=== PATIENT | male | born 1955 | race Caucasian/White ===

== ENCOUNTER 2018-09-28 18:07 | Inpatient (IN) | payer MEDICARE, MEDICAID ==
[2018-09-28 18:31] LABS: Actual Bicarbonate (HCO3a) 29.7 mEq/L (22-28); Analyzer IN Cardio ER; Base Excess (BEa) 0.7 mEq/L (-2.0 to +3.0); Calcium, Ionized 1.14 mmol/L (1.12-1.30); Carboxyhemoglobin (COHb) 3.8 gm% (0.0-3.0); Hemoglobin (Hb) 13.8 g/dL (14.0-18.0); O2 Tension (PaO2) 62.9 mmHg (> 80.0); Potassium - ABG Lab 4.01 mmol/L (3.70-5.30); pH, Arterial 7.26 (7.35-7.45)
[2018-09-28 18:35] LABS: CO2 Tension 68.4 mmHg (35.0-45.0); Puncture Site R BRACHIAL
--- NOTE | 2018-09-28 18:53 | RAD ---
XR Chest 1 View Portable HISTORY: Dyspnea COMPARISON: 03/29/2018 study FINDINGS: Heart size is enlarged. Pulmonary vessels are engorged. There is blunting to the right cost ophrenic angle consistent with effusion. IMPRESSION: Cardiomegaly with mild CHF type changes.
[2018-09-28 18:56] LABS: Bilirubin Negative (Negative); Blood, Urine Trace (Negative); Clarity Clear (Clear); Glucose, Urine (Dipstick) Normal (Negative); Leukocyte 25 Leu/uL (Negative); Nitrite Negative (Negative); Protein, Urine (Dipstick) 20 mg/dL (Neg-Trace); RBC/HPF 0-3 HPF (0-3); Urobilinogen Normal mg/dL (Less than 2)
[2018-09-28 19:00] LABS: #Basophils 0.1 thou/uL (0.0-0.2); #Eosinphils 0.1 thou/uL (0.0-0.7); #Lymphocytes 2.5 thou/uL (1.20-3.40); #Monocytes 0.3 thou/uL (0.11-0.59); #Neutrophils 2.5 thou/uL (1.40-6.50); %Basophils 1.2 % (0.0-1.0); %Eosinophils 1.5 % (0.0-10.0); %Lymphocytes 45.4 % (21.0-51.0); %Monocytes 6.2 % (0.0-10.0); %Neutrophils 45.7 % (42.0-75.0); Hemoglobin 13.8 g/dL (14.0-18.0); Mean Corpuscular HGB CONC 32.3 g/dL (32.0-36.0); Mean Corpuscular Hemoglobin 31.4 pg (27.0-31.0); Mean Corpuscular Volume 97.1 fL (78.0-98.0); Platelet Count 171 thou/uL (130-400); RBC Distribution Width 13.1 % (11.5-14.5); White Blood Cell (WBC) Count 5.5 thou/uL (4.8-10.8)
[2018-09-28 19:00] LABS: Bacteria/HPF 1+ HPF (None Seen)
[2018-09-28 19:21] LABS: ALT (SGPT) 12 U/L (8-55); AST (SGOT) 25 U/L (5-34); Albumin 3.2 g/dL (3.4-4.8); Alkaline Phosphatase 74 U/L (40-150); Anion Gap 10 mmol/L (10-20); BUN (Urea Nitrogen) 25 mg/dL (8.4-25.7); Bilirubin, Total 0.4 mg/dL (0.2-1.2); CK (CPK) 656 U/L (30-200); Calc. Creatinine Clearance 0 mL/min (70-130); Calcium 8.5 mg/dL (7.8-10.44); Carbon Dioxide 33 mmol/L (23-31); Chloride 102 mmol/L (98-107); Estimated GFR-MDRD 42; Globulin 3.1 g/dL (2.4-3.5); Glucose 131 mg/dL (80-115); Magnesium 2.3 mg/dL (1.6-2.6); Potassium 4.1 mmol/L (3.5-5.1); Protein, Total 6.3 g/dL (5.8-8.1); Sodium 141 mmol/L (136-145)
[2018-09-28] MEDS ORDERED: Furosemide 40 MG/4 ML VIAL ONE (20:26)
[2018-09-29] MEDS ORDERED: Guaifenesin DM 100-10/5 ML UDCUP PO PRN (01:39)
[2018-09-29] MEDS ORDERED: Ondansetron ODT 4 MG TAB PO PRN (01:39)
[2018-09-29] MEDS ORDERED: Ondansetron PF 4 MG/2 ML Vial IVP PRN (01:39)
[2018-09-29] MEDS ORDERED: Acetaminophen 500 MG TAB PO PRN (01:39)
[2018-09-29] MEDS ORDERED: Bacteriostatic Water 30 ML VIAL FS PRN (01:57)
[2018-09-29] MEDS: Cefepime 2 GM in Sodium Chloride 0.9% 100 ML IVPB SCH ×2 (02:06→14:12)
[2018-09-29] MEDS: methylPREDNISolone Sod Succ 40 MG VIAL IVP SCH ×2 (02:07→08:54)
[2018-09-29] MEDS ORDERED: methylPREDNISolone Sod Succ 40 MG VIAL ONE (02:10)
[2018-09-29 03:08] VITALS: BP 99/62; BMI 25.3
[2018-09-29 05:18] LABS: Anion Gap 16 mmol/L (10-20); BUN (Urea Nitrogen) 26 mg/dL (8.4-25.7); Calc. Creatinine Clearance 42 mL/min (70-130); Calcium 8.8 mg/dL (7.8-10.44); Carbon Dioxide 30 mmol/L (23-31); Chloride 100 mmol/L (98-107); Estimated GFR-MDRD 47; Glucose 151 mg/dL (80-115); Potassium 4.2 mmol/L (3.5-5.1); Sodium 142 mmol/L (136-145)
[2018-09-29 05:21] LABS: Band 7 % (5-11); Lymphocytes 26 % (21-51); MDiff Complete? YES; Mean Corpuscular HGB CONC 31.8 g/dL (32.0-36.0); Mean Corpuscular Hemoglobin 30.6 pg (27.0-31.0); Mean Corpuscular Volume 96.2 fL (78.0-98.0); Mean Platelet Volume 7.6 fL (7.4-10.4); Myelocyte 1 % (0-0); Neutrophil 66 % (42-75); Platelet Count 177 thou/uL (130-400); RBC Distribution Width 13.1 % (11.5-14.5); Red Blood Cell (RBC) Count 4.57 mill/uL (4.70-6.10); White Blood Cell (WBC) Count 3.8 thou/uL (4.8-10.8)
[2018-09-29] MEDS: Famotidine/PF 20 mg/2ml Vial SLOW IVP SCH (08:54)
[2018-09-29] MEDS ORDERED: Vancomycin HCl 1 GM in Premix Bag 1 BAG IVPB SCH (09:00)
--- NOTE | 2018-09-29 09:07 | HP ---
PRIMARY CARE PROVIDER: Dr. Sandra Main. CHIEF COMPLAINT: Shortness of breath and altered mental status. HISTORY OF PRESENT ILLNESS: This is a 63-year-old male, who resides at [place], [place] over the last 4 months, presenting to [facility] Emergency Department for increasing shortness of breath, hypoxemia, and decreased mentation. The history is obtained after reviewing electronic medical records in the emergency room as well as discussions with the patient's sister at the bedside. The patient currently on BiPAP noninvasive mechanical ventilation and with advanced Down syndrome, unable to provide any history. The patient apparently had been noted with increasing shortness of breath and diagnosed with bronchitis, initiated on antibiotic therapy at [facility] in [place]. The patient continued to decompensate with worsening hypoxemia and decreased alertness. EMS personnel were notified at which point patient received bronchodilator therapy with DuoNebs, Solu-Medrol, and intravenous normal saline. The patient underwent evaluation in the emergency room with chest imaging showing bilateral infiltrates. The patient received IV Levaquin, vancomycin, bronchodilator therapy with DuoNebs and Lasix 40 mg IV x1 dose. The patient was also noted with respiratory acidosis with an initial ABG showing a pH of 7.26, and a pCO2 of 68. The patient was placed on BiPAP noninvasive mechanical ventilation with overall stabilization of respiratory status. PAST MEDICAL HISTORY: 1. Hypothyroidism. 2. Down syndrome. 3. Gastroesophageal reflux disease. 4. History of bladder spasms. PAST SURGICAL HISTORY: Status post urethral repair. CURRENT MEDICATIONS: 1. Albuterol 90 mcg inhaled q.i.d. p.r.n. 2. Tylenol 325 mg 1 tablet p.o. q.6 hours p.r.n. pain. 3. Omeprazole 40 mg p.o. daily. 4. Alfuzosin 10 mg p.o. daily. 5. Lasix 20 mg p.o. every other day. 6. Levothyroxine 125 mcg p.o. daily. 7. Aspirin 81 mg p.o. daily. 8. Artesian-3 fatty acids 1000 mg p.o. daily. 9. MiraLAX 17 g p.o. daily. 10. Reglan. 11. Zaditor ophthalmic drops 0.025% one drop to each eye daily. ALLERGIES: NO KNOWN DRUG ALLERGIES. FAMILY HISTORY: No inheritable diseases per family report. SOCIAL HISTORY: The patient resides at [facility] in [facility] x4 months. Previously lived with his sister for 13 years. No alcohol, tobacco, or illicit drug use. Essentially nonambulatory except with contact guard assistance. REVIEW OF SYSTEMS: Unobtainable as patient with acute respiratory failure and advanced Down syndrome. PHYSICAL EXAMINATION: VITAL SIGNS: On admission, blood pressure 110/61, pulse 73, respiratory rate 23, temperature 98 degrees Fahrenheit, O2 saturation 90% on room air. GENERAL APPEARANCE: This is a 63-year-old male, on current BiPAP noninvasive mechanical ventilation, minimally responsive. HEENT: Pupils are equal, round, reactive to light and accommodation. Extraocular muscles are intact. No scleral icterus. No conjunctival injection. Nares patent. OP is clear. BiPAP noninvasive mechanical ventilation mask in place. NECK: Supple. No cervical adenopathy. No thyromegaly. No carotid bruits. No JVD appreciated. Cervical spine full active and passive range of motion. No meningeal signs noted. CHEST: Diminished breath sounds bilaterally. CARDIOVASCULAR EXAM: S1-S2 without noted murmur, rub, or gallop. ABDOMEN: Rounded, soft, nontender, and nondistended. Bowel sounds are positive in all 4 quadrants. No hepatosplenomegaly. No abdominal bruits. No rebound or guarding appreciated. EXTREMITIES: Warm and dry with fair turgor. No clubbing, cyanosis, or asymmetric edema appreciated. Pulses palpable distally at the dorsalis pedis, posterior tibial, and popliteal arteries bilaterally. Capillary refill less than 2 seconds. NEUROLOGIC: Somnolent on current BiPAP noninvasive mechanical ventilation. Does not follow commands currently. Opens eyes to direct stimulation. PERTINENT LAB AND X-RAY FINDINGS: Sodium 141, potassium 4.1, chloride 102, CO2 of 33, anion gap of 10, BUN 25, creatinine 1.67, estimated GFR of 42, glucose 131, lactic acid level 1.2, calcium 8.5, magnesium 2.3. LFTs within normal limits. Total CK of 656, troponin I 0.019. BNP 42. Albumin 3.2. TSH 11.73, previously noted 52.9 on 08/15/2018. CBC showed a white blood cell count of 5.5, hemoglobin 14, hematocrit 43, platelet count 171. ABG dated 09/28/2018, showed a pH of 7.26, pCO2 of 68.4, pO2 of 63, bicarb is 30, O2 saturation 90% on 3 L/minute by nasal cannula. IMAGING: EKG dated 09/28/2018, by my interpretation shows a sinus mechanism normal R-wave progression noted in the precordial leads, left axis deviation. No acute ST-T wave changes appreciated. ASSESSMENT/PLAN: 1. Acute hypoxic hypercapnic respiratory failure. Multifactorial process. Questionable infectious influence. We will continue oxygen supplementation to maintain O2 saturations greater than or equal to 90%. Continue BiPAP noninvasive mechanical ventilation. Consult Pulmonology Service in the a.m. for any further recommendations. 2. Chronic kidney disease, stage 3. Avoid nephrotoxic agents and limit contrast exposure. Repeat creatinine in the a.m. 3. Acute bronchitis/pneumonitis. Questionable etiology. We will continue cefepime 2 g IV q.12 hours with additional vancomycin 1 g IV q.12 hours. 4. Add Solu-Medrol 40 mg IV q.6 hours. 5. Hypothyroidism. Poor control currently. Continue Synthroid 125 mcg daily. 6. Prophylaxis. Sequential compression devices while in bed. 7. Pepcid 20 mg IV b.i.d.. CODE STATUS: Do not attempt resuscitation, confirmed by patient's sister and medical power of sales performance analyst. Surrogate medical decision maker is the patient's sister. Job ID: [id number]
[2018-09-29 11:04] LABS: Calcium, Ionized 1.17 mmol/L (1.12-1.30); Hemoglobin (Hb) 14.1 g/dL (14.0-18.0); O2 Tension (PaO2) 138.6 mmHg (> 80.0); Potassium - ABG Lab 4.16 mmol/L (3.70-5.30); pH, Arterial 7.35 (7.35-7.45)
[2018-09-29 11:13] LABS: Puncture Site RR
--- NOTE | 2018-09-29 14:23 | CON ---
DATE OF CONSULTATION: 09/29/2018 SERVICE: Pulmonary Medicine. REASON FOR CONSULT: Hypercapnic failure. HISTORY OF PRESENT ILLNESS: The patient is a 63-year-old white male with past medical history significant for Down syndrome. Three months ago, he was placed in a nursing facility because family was no longer able to care for him safely at home. Ultimately, he started having increasing difficulty breathing and mental status changes. He was subsequently brought to the Emergency Department and discovered to be hypoxemic. He was initiated on BiPAP. Watching him breathe with BiPAP is quite interesting. He has very prolonged periods of apnea. Whenever he tries to breathe in his sleeping; however, he has severe obstructive apneas. The patient was constantly clawing at the mask that is on his face. His mother is suggesting that there is no way that he would be able to wear this thing long- term. He cannot provide any additional elements of the history because of his encephalopathy. He was initiated on some antibiotics and steroids. Overnight, his mentation has not improved to very much, but his hypercapnic failure and acidosis have both improved. PAST MEDICAL HISTORY: 1. Hypothyroidism. 2. Down syndrome. 3. Gastroesophageal reflux disease. 4. History of bladder spasms. PAST SURGICAL HISTORY: Urethral repair. ALLERGIES: NO KNOWN DRUG ALLERGIES. MEDICATIONS: List of his inpatient medications was reviewed. No specific updates were made at this time. FAMILY HISTORY: Noncontributory. SOCIAL HISTORY: He is a resident of the [facility], but has only been there for couple of months. He previously lived with his sister for over 13 years. No alcohol, tobacco, or illicit drug use is present. He is essentially nonambulatory except for with constant assistance. REVIEW OF SYSTEMS: General, head, ears, eyes, nose, throat, cardiovascular, respiratory, GI, , musculoskeletal, neurologic, and skin are negative except as mentioned in the HPI. PHYSICAL EXAMINATION: VITAL SIGNS: Afebrile, pulse 67, blood pressure 99/62, respirations 15, and saturation 96% on 21% FiO2 delivered via AVAPS. HEENT: Normocephalic and atraumatic. Sclerae white. Conjunctivae pink. Oral mucosa is moist without lesions. LUNGS: Decent air entry when he breathes. He has a minimally prolonged expiratory phase. I do not appreciate any wheezing. Extensive rhonchi are present, worse on the right. HEART: Normal rate. Regular. ABDOMEN: Soft, nontender, and nondistended. Bowel sounds are positive. MUSCULOSKELETAL: No cyanosis or clubbing. There is trace pitting in the bilateral lower extremities. NEUROLOGIC: Grossly nonfocal. LABORATORY DATA: WBC 3.8, hemoglobin 14.0, and platelets 177,000. Neutrophils are 66% on top of 7% bands. A pH of 7.35, pCO2 of 65, and pO2 of 138 on 32% FiO2 delivered via BiPAP at that time. Creatinine 1.49, it is gently downtrending. Basic metabolic profile is otherwise unremarkable. Lactate 1.2. Troponin 0.019 and BNP is low. Free T4 is normal, though the TSH is a touch elevated at 11. Liver function studies are unremarkable, though his CK is 656. IMAGING: Chest x-ray demonstrates cardiomegaly. There is a right-sided pleural effusion present. Cephalization of the bilateral lung lyman is present. Tubes and wires overlie his chest. ASSESSMENT: 1. Acute on chronic hypoxic and hypercapnic respiratory failure. 2. Obstructive and central sleep apneas, witnessed at bedside. 3. Down syndrome with advanced debility. 4. Chronic kidney disease. 5. Healthcare-associated pneumonia. DISCUSSION AND PLAN: We will continue our antibiotics, nebulized medications, and steroids. I do not think the patient has significant COPD here. My suspicion is that his advanced hypercapnic failure has come from untreated, longstanding severe obstructive and central sleep apneas. He is not a candidate for noninvasive therapy, or polysomnogram in the outpatient setting as there is no way that he will be able to tolerate these things moving forward. Pulmonary/Critical Care will continue to follow along, but at this point, we will simply pursue supportive measures. I will place him on average volume-assured pressure supports instead. Starting tomorrow, we will give him breaks off his noninvasive ventilation. Given how his chest x-ray looks, I am going to pursue an ultrasound of the heart to make certain his ejection fraction is adequate. This is primarily to more closely investigate his central events. He will remain in the [facility] for the time being. 70 minutes have been devoted to this patient in various activities. I personally reviewed all imaging studies and laboratory data noted within this document. For fifty percent of this time, I was interacting with the patient at the bedside or coordinating care with the care team. For the remainder of the time I was immediately available to the patient in the hospital unit. Job ID: [id number] MTDD
--- NOTE | 2018-09-29 15:19 | PDOC.EVN ---
Event Note - Event Note Event Note: Reviewed the case. Discussed with Dr. Griffin. Has acute on chronic hypercapneic resp failure. Likely central and obstructive apnea with acute bronchitis. Supportive care and treating bronchitis. Discussed with patient's sister and POA. Answered all questions. Palliative Care Team following as well.
[2018-09-29] MEDS ORDERED: Vancomycin HCl 500 MG in Sodium Chloride 0.9% 100 ML IVPB SCH (20:00)
[2018-09-30] MEDS: Cefepime 2 GM in Sodium Chloride 0.9% 100 ML IVPB SCH ×2 (02:30→15:42)
[2018-09-30] MEDS ORDERED: Levothyroxine Sodium 125 MCG TAB PO SCH (06:00)
[2018-09-30] MEDS: Famotidine/PF 20 mg/2ml Vial SLOW IVP SCH (08:43)
[2018-09-30] MEDS ORDERED: methylPREDNISolone Sod Succ 40 MG VIAL IVP SCH (09:00)
[2018-09-30 11:29] VITALS: TEMP 98.6
--- NOTE | 2018-09-30 14:42 | PRG ---
DATE OF SERVICE: 09/30/2018 SERVICE: Pulmonary Medicine. INTERVAL HISTORY: We gave him a BiPAP holiday. Without the BiPAP, he desaturates down into the 50s. He intermittently does this. He will go apneic for a total of 30 to 40 seconds. Then, he will wake up, take a couple of breaths, and his oxygen saturations should right back up. The alarms continue to go off. The family is suggesting he has been doing this for decades. They did not realize they were associated with such severe desaturations and bradycardia events. That being said, they would like for us to make no further efforts had putting him on noninvasive ventilation. We also talked about the option of tracheostomy. Under no circumstances would he want anything like that. As such, I believe we are making a move towards transitioning to comfort care only. PHYSICAL EXAMINATION: VITAL SIGNS: Afebrile, pulse 71, blood pressure 110/47, respirations 18, and saturation 91%, currently on room air. GENERAL: The patient is awake and alert, in no apparent distress. LUNGS: Very good air entry. No prolonged expiratory phase or wheezing present. HEART: Normal rate regular. ABDOMEN: Soft, nontender, nondistended. Bowel sounds are positive. MUSCULOSKELETAL: No cyanosis or clubbing. There is no pitting in the bilateral lower extremities. NEUROLOGIC: Grossly nonfocal. LABORATORIES: Hemoglobin 14.0 and platelets 177,000. All cultures remain negative. ASSESSMENT: 1. Acute on chronic hypoxic and hypercapnic respiratory failure. 2. Obstructive and central sleep apneas, horrendous. 3. Down syndrome with advanced debility. 4. Chronic kidney disease. 5. Healthcare-associated pneumonia. DISCUSSION AND PLAN: We are going to continue the antibiotics and nebulized medications as well as steroids. The family is thinking about transitioning over to comfort care only, which I think would be perfectly reasonable. Long-standing, I do not think that we are going to be able to improve the patient's quality of life, or general health without noninvasive ventilation and/or tracheostomy. Based on what the family suggesting to me, he would not want any of these maneuvers performed. As such, moving forward, I think that Hospice would be an appropriate disposition. I will continue to follow as long as he remains in-house. Job ID: [id number]
--- NOTE | 2018-09-30 17:47 | PDOC.HOSPP ---
- Subjective Encounter Date: 09/30/18 Encounter Time: 09:40 Subjective: Pt seen for followup re: acute on chronic hypercapnic respiratory failure. Pt is nonverbal, unable to complete ROS. - Objective Vital Signs & Weight: Vital Signs (12 hours) Temp Pulse Resp Pulse Ox 09/30/18 15:17 98.6 F 09/30/18 14:35 63 21 H 95 09/30/18 14:34 68 21 H 95 09/30/18 11:28 98.6 F 09/30/18 11:10 62 12 99 09/30/18 11:08 62 11 L 99 09/30/18 07:53 94 L 09/30/18 07:21 60 16 98 09/30/18 07:18 67 16 95 09/30/18 07:10 97.5 F L Weight Admit Weight 129 lb 14.4 oz Weight 129 lb 14.4 oz Most Recent Monitor Data Heart Rate from ECG 64 NIBP 111/62 NIBP BP-Mean 78 Respiration from ECG 17 SpO2 100 I&O: 09/29/18 09/30/18 10/01/18 06:59 06:59 06:59 Intake Total 110 220 Balance 110 220 Result Diagrams: 09/29/18 04:44 09/29/18 04:44 Additional Labs: Labs and MARs reviewed by me ROS - Medication Medications: Active Medications Generic Name Dose Route Start Last Admin Trade Name Freq PRN Reason Stop Dose Admin Albuterol/Ipratropium 3 ml 09/29/18 07:00 09/30/18 14:34 Duoneb NEB 3 ml [id number] JOANNA Administration Famotidine 20 mg 09/29/18 09:00 09/30/18 08:43 Pepcid SLOW IVP 20 mg Q24HR JOANNA Administration Cefepime HCl 2 gm/ Sodium 100 mls @ 200 mls/hr 09/29/18 02:00 09/30/18 15:42 Chloride IVPB Not Given 0200,1400 JOANNA Vancomycin HCl 500 mg/ Sodium 100 mls @ 100 mls/hr 09/29/18 20:00 09/29/18 21 :12 Chloride IVPB 100 mls 2000 JOANNA Administration Levothyroxine Sodium 125 mcg 09/30/18 06:00 09/30/18 07:00 Synthroid PO Not Given 0600 [facility] Methylprednisolone Sodium Succinate 40 mg 09/30/18 09:00 08/17/19 08:43 Solu-Medrol IVP 40 mg DAILY JOANNA Administration - Exam General - other findings: sleepy Eye: anicteric sclera ENT: moist mucosa Neck: supple Heart: RRR Respiratory - other findings: apnea events Gastrointestinal: soft, non-tender Extremities: no edema Psychiatric - other findings: Unable to assess Hosp A/P (1) Acute on chronic respiratory failure with hypercapnia Code(s): J96.22 - ACUTE AND CHRONIC RESPIRATORY FAILURE WITH HYPERCAPNIA Status: Acute (2) Down syndrome Code(s): Q90.9 - DOWN SYNDROME, UNSPECIFIED Status: Chronic (3) Stage 3 chronic kidney disease Code(s): N18.3 - CHRONIC KIDNEY DISEASE, STAGE 3 (MODERATE) Status: Chronic (4) Hypothyroidism Code(s): E03.9 - HYPOTHYROIDISM, UNSPECIFIED Status: Chronic - Plan plan discussed w/ family, continue antibiotics Continue cefepime and Solu-medrol. Continue BiPAP therapy. Family discussing goals of care.
--- NOTE | 2018-10-01 01:26 | DIS ---
DATE OF ADMISSION: 09/28/2018 DATE OF DISCHARGE: 09/30/2018 PRIMARY CARE PROVIDER: Johanne Pineda. DISCHARGE DIAGNOSIS: Acute on chronic hypercapnic respiratory failure. CONDITION OF PATIENT AT THE TIME OF DISCHARGE: I assessed Mr. Amador on the day of discharge. Please refer to my daily progress note for details regarding this qncd-hs-hisk encounter. CONSULTATIONS DURING THIS HOSPITALIZATION: Pulmonary and Critical Care Medicine, Dr. Griffin. DISCHARGE MEDICATIONS: No change is made to patient's pre-admission home medications as dictated by Dr. Ragland in his history and physical note dated September 29, 2018. The medications will likely be modified by hospice facility. FOLLOWUP: With hospice physician. HOSPITAL COURSE: Mr. Amador is a pleasant 63-year-old gentleman, who was admitted to [facility] on September 29, 2018, for acute on chronic hypercapnic respiratory failure. He had multiple apneic spells. He was treated with BiPAP. Palliative Care Service was consulted. After discussion with family, family wanted hospice. Patient is being discharged to [facility] for further management. Many thanks for allowing me to participate in your patient's care. Please feel free to contact me with any questions or concerns. DISCHARGE DESTINATION: [facility]. Total amount of time spent coordinating this discharge: Nineteen minutes. Job ID: [id number]
--- NOTE | 2018-10-03 08:34 | PQF ---
[employer] Glass Block Bender Crystal Reports Winform Viewer YUSUF ESCOTO DAVID [id number] SAMANTA SAMANTA [id number] CLINICAL DOCUMENTATION CLARIFICATION FORM: POST DISCHARGE Addendum to original discharge summary date: ____ Late entry note date: __ DATE: 10-03-2018 ATTN:Yusuf Newman Please exercise your independent, professional judgment in responding to the clarification form. Clinical indicators are provided on the bottom of this form for your review Can you please specify whether Healthcare Associated Pneumonia is ruled in or ruled out during this encounter? Please check appropriate box(s) to clarify if the following diagnosis has been ruled in or ruled out: Healthcare Associated Pneumonia [ ] Ruled in diagnosis [ ] Continue to treat [ ] Resolved [ x ] Ruled out diagnosis [ ] Cannot rule out diagnosis [ ] Other diagnosis please specify: [ ] Unable to determine For continuity of documentation, please document condition throughout progress notes and discharge summary. Thank You. CLINICAL INDICATORS: H&P 09/[address] Ragland Shortness of breath and altered mental status H&P 09/[address] Ragland increasing shortness of breath, hypoxemia and decrease mentation H&P 09/[address] Ragland Acute hypoxic hypercapneic respiratory failure PN 09/30 [g1 Dr. Elias Laineztcare associated Pneumonia DS 10/[address] Restrepo Acute on chronic respiratory failure with hypoxia RISK FACTOR: H&P 09/29 Dr. Ragland- GERD H&P 09/29 Dr. Ragland- Down Syndrome H&P 09/29 Dr. Ragland- CKD 3 PN 09/30- BILLIE DS 10/01-Acute on chronic respiratory failure with hypoxia TREATMENTS: H&P 09/29 -BIPAP H&P 09/29- Pulmo Consult APR 21 Douneb 3 ml APR 21- Solumedrol 40 mg APR 21- Vancomycin Hcl IV (This form is maintained as a part of the permanent medical record) 2014 [employer], [employer]. All Rights Reserved Cece [email or web address] [not provided] MTDD
--- NOTE | 2018-10-04 00:03 | PQF ---
[employer] Ham Trimmer Crystal Reports Winform Viewer PARVIZ ESCOTO PARVIZ [id number] SAMANTA SAMANTA [id number] CLINICAL DOCUMENTATION CLARIFICATION FORM: POST DISCHARGE Addendum to original discharge summary date: ____ Late entry note date: 10/10/2018 DATE:10-04-18 ATTN:Parviz Newman Please exercise your independent, professional judgment in responding to the clarification form. Clinical indicators are provided on the bottom of this form for your review Can you please identify the specificity of patients Encephalopathy. Please check appropriate box(s): [ X ] Encephalopathy: Type: [ X] Acute [ ] Subacute [ ] Chronic Etiology: [ X ] Metabolic [ ] Toxic [ ] Due to drugs [ ] Unspecified [ ] Other (please specify) [ ] Other diagnosis please specify: [ ] Unable to determine In addition, please specify: Present on Admission (POA): [ X ] Yes [ ] No [ ] Unable to determine For continuity of documentation, please document condition throughout progress notes and discharge summary. Thank You. CLINICAL INDICATORS: H&P 09/[address] Ragland Chief complaint: shortness of breath and altered mental status H&P 09/[address] Ragland The patient continued to decompensate with worsening hypoxemia and decreased alertness H&P 09/[address] Ragland PE: Neurologic: Somnolent on current BIPAP, does not follow commands currently Consult 09/[address] Griffin He cannot provide any additional elements of the history because of his encephalopathy DS 09/[address] Restrepo Acute on chronic hypercapnic respiratory failure RISK FACTORS: H&P 09/29 Dr. Ragland- Down Syndrome H&P 09/29 Dr. Ragland- GERD Consult 09/29 Dr. Griffin- Encephalopathy PN 09/30 Dr. Restrepo- Acute on chronic respiratory failure with hypoxia PN 09/30 Dr. Restrepo- CKD stage 3 TREATMENTS: H&P 09/29 Dr. Ragland- BIPAP APR 21- Levaquin IV 750 mg APR 21-Synthroid 125 mcg PO APR 21-Solumedrol 40 mg IV (This form is maintained as a part of the permanent medical record) 2014 [employer], [employer]. All Rights Reserved Cece [email or web address] [not provided] MTDD
--- NOTE | 2018-10-11 09:41 | DIS ---
DATE OF ADMISSION: 09/28/2018 DATE OF DISCHARGE: 09/30/2018 ADDENDUM: Mr. Amador's discharge diagnoses also include acute metabolic encephalopathy, present on admission. Job ID: [id number]
== END 2018-09-30 20:30 | disposition hospice, inpatient (51) | DRG 189 ==
LOC: ERS 18:07 → ERHOLD 21:30 → IMCU/EMU 09-29 02:48
PROVIDERS: ADMIT Family Medicine; ATTEND Family Medicine
PROC: 5A09457 Assistance with Respiratory Ventilation, 24-96 Consecutive Hours, Continuous Positive Airway Pressure (ICD-10-PCS; principal; 2018-09-28)
DX: J96.21 Acute and chronic respiratory failure with hypoxia (principal); G93.41 Metabolic encephalopathy; E03.9 Hypothyroidism, unspecified; J96.22 Acute and chronic respiratory failure with hypercapnia; Z66 Do not resuscitate; K21.9 Gastro-esophageal reflux disease without esophagitis; G47.33 Obstructive sleep apnea (adult) (pediatric); N18.3 Chronic kidney disease, stage 3 (moderate); Q90.9 Down syndrome, unspecified; Z79.899 Other long term (current) drug therapy; Z79.82 Long term (current) use of aspirin; Z88.1 Allergy status to other antibiotic agents
CPT/HCPCS: 36415; 51701; 71045; 80048; 80053; 81003; 81015; 82550; 82805; 83605; 83735; 83880; 84439; 84443; 84484; 85007; 85025; 85027; 87040; 87086; 87804; 93005; 94640; 94660; 96365; 96367; 96375; J0692; J1940; J1956; J2920; J3370; J3490; J7620; S0028